=== PATIENT | female | born 1990 | race Caucasian/White ===

== ENCOUNTER 2019-04-16 06:15 | Emergency (ER) | payer OTHER ==
[~2019-04-16] VITALS: Ht 172.7 cm; Wt 95.0 kg
[2019-04-16 06:21] VITALS: Ht 172.7 cm; Wt 95.0 kg
[2019-04-16] MEDS ORDERED: OLANZAPINE (ODT) 5 MG TAB ODT ONE (06:30)
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
[2019-04-16 17:18] VITALS: BP 138/81; PULSE 90; RESP 16
[2019-04-16] MEDS ORDERED: ESCITALOPRAM 10 MG TAB PO SCH (21:00)
== END 2019-04-16 19:01 ==
LOC: E/R 06:15
DX: S91.311A Laceration without foreign body, right foot, initial encounter (principal); R45.851 Suicidal ideations; F17.210 Nicotine dependence, cigarettes, uncomplicated; W25.XXXA Contact with sharp glass, initial encounter; Y92.9 Unspecified place or not applicable
CPT/HCPCS: 12001; 73630; 80053; 80307; 81025; 85025; Z7610; 36415